=== PATIENT | female | born 1940 | race Caucasian/White ===

== ENCOUNTER 2019-03-08 12:55 | Outpatient (CLI) | payer MEDICARE, BC ==
[2019-03-08 13:25] LABS: ABG BASE EXCESS -2.7 mmol/L; ABG OXYGEN SATURATION 89.9 % (92.0-98.5); ABG PCO2 36.4 mmHg (35.0-45.0); ABG PH 7.394 (7.350-7.450); ABG PO2 58.7 mmHg (75.0-100.0); AaDO2 47.4 mmHg; COHb 0.7 % (0.5-1.5); MetHb 0.4 % (0.0-1.5); O2Hb 88.9 % (94.0-97.0); SITE, ABG Left Radial; VENT MODE, BG ROOM AIR
== END 2019-03-08 23:59 | disposition home or self-care (01) ==
LOC: RT 12:55
PROVIDERS: ATTEND Internal Medicine Pulmonary Disease
DX: R06.02 Shortness of breath (principal)
CPT/HCPCS: 36600; 82803-TC